=== PATIENT | male | born 1975 | race Two or more races ===

== ENCOUNTER 2021-07-02 06:51 | Emergency (ER) | payer OTHER ==
[~2021-07-02] VITALS: Ht 180.3 cm; Wt 97.5 kg
== END 2021-07-02 11:14 | disposition home or self-care (01) ==
LOC: ER 06:51
DX: B34.9 Viral infection, unspecified (principal); R07.0 Pain in throat; R51.9 Headache, unspecified; Z03.818 Encounter for observation for suspected exposure to other biological agents ruled out

== ENCOUNTER 2021-12-11 04:37 | Emergency (ER) | payer OTHER ==
[~2021-12-11] VITALS: Ht 180.3 cm; Wt 97.5 kg
[2021-12-11] MEDS ORDERED: MEDROLPACK PO (07:04)
[2021-12-11] MEDS ORDERED: AZITHROMYCIN500 MG PO (07:04)
[2021-12-11] MEDS ORDERED: MUCINEX DM ER1 EAC1 PO (07:04)
[2021-12-11] MEDS ORDERED: VITAMIN C WIT1000 MG PO (07:08)
== END 2021-12-11 09:13 | disposition home or self-care (01) ==
LOC: ER 04:37
DX: J06.9 Acute upper respiratory infection, unspecified (principal); J40 Bronchitis, not specified as acute or chronic; R05.9 Cough, unspecified